=== PATIENT | female | born 1990 | race Caucasian/White ===

== ENCOUNTER 2016-08-14 18:26 | Inpatient (IN) ==
--- NOTE | 2016-08-14 18:38 | Emergency Department Note ---
Disposition Clinical Impression: Intentional overdose of drug in tablet form, Depression, Suicidal ideation Disposition: Admitted As Inpatient Condition: Serious General Adult HPI - General Chief complaint: ED Overdose Stated complaint: overdose Time Seen by Provider: 08/14/16 18:28 Source: EMS Limitations: altered mental status - History of Present Illness Pain Scale: 0 - Related Data Home Medications Medication Instructions Recorded Confirmed No Known Home Drugs 08/14/16 08/14/16 Allergies Allergy/AdvReac Type Severity Reaction Status Date / Time No Known Allergies Allergy Verified 11/24/15 22:27 Past Medical History - Past Medical History Medical history: Reports: no medical history Surgical history: Reports: Psychiatric history: Reports: anxiety, depression, prior suicide attempt, previous psychiatric hospitalization 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 - Social History Smoking Status: Current every day smoker Smokeless Tobacco Status: No Alcohol use: Reports: none Drug use: Reports: none Physical Exam - General Limitations: altered mental status General appearance: other Course Vital Signs Temperature 97.5 F L 08/14/16 18:28 Pulse Rate 63 08/14/16 18:28 Respiratory Rate 14 08/14/16 18:28 Blood Pressure 134/91 08/14/16 18:28 O2 Sat by Pulse Oximetry 98 08/14/16 18:28 Temperature 98.3 F 08/15/16 08:58 Pulse Rate 99 08/15/16 08:58 Respiratory Rate 14 08/15/16 08:58 Blood Pressure 141/87 08/15/16 08:58 O2 Sat by Pulse Oximetry 99 08/14/16 18:42 Oxygen Delivery Oxygen Delivery Room Air Medical Decision Making - Lab Data Result diagrams: 08/14/16 18:49 08/14/16 18:49 Lab Results 08/14/16 08/14/16 08/14/16 Range/Units 18:30 18:30 18:30 WBC (4.3-11.1) K/mcL RBC (3.82-4.97) M/mcL Hgb (11.5-15.4) g/dL Hct (35.3-44.9) % MCV (83.0-100.0) fL MCH (28.0-33.3) pg MCHC (31.6-35.5) g/dL RDW (11.5-14.5) % Plt Count (140-400) K/mcL MPV (9.4-12.4) fL Immature Gran % (0-4) % Seg Neutrophils % % Lymphocytes % % Monocytes % % Eosinophils % % Basophils % % Neutrophils # (1.6-8.9) K/mcL Lymphocytes # (0.6-4.6) K/mcL Monocytes # (0.0-1.3) K/mcL Eosinophils # (0.0-0.6) K/mcL Basophils # (0.0-0.2) K/mcL Sodium (136-145) mEq/L Potassium (3.5-4.5) mEq/L Chloride (98-109) mEq/L Carbon Dioxide (19-29) mEq/L BUN (7-20) mg/dL Creatinine (0.57-1.11) mg/dL Est GFR ( Amer) (> 60) Est GFR (Non-Af Amer) (> 60) BUN/Creatinine Ratio (6-26) Glucose (70-99) mg/dL POC Glucose (58-89) Calculated Osmolality (280-300) Calcium (8.6-10.8) mg/dL Total Bilirubin (0.2-1.2) mg/dL Direct Bilirubin (0.0-0.5) mg/dL Indirect Bilirubin (0.0-1.2) mg/dL AST (5-34) Units/L ALT (0-55) Units/L Alkaline Phosphatase (38-126) Units/L Serum Total Protein (6.0-8.3) g/dL Albumin (3.5-5.0) g/dL Globulin (2.4-3.5) g/dL Albumin/Globulin Ratio (1.1-2.2) Urine Color Yellow (Yellow) Urine Clarity Cloudy A (Clear) Urine pH 5.5 (5.0-8.0) pH Units Ur Specific [place] [address] 1.025 (1.010-1.025) Urine Protein Negative (Neg-Trace) mg/dL Urine Glucose (UA) Normal (Normal) mg/dL Urine Ketones Negative (Negative) mg/dL Urine Blood Negative (Negative) Urine Nitrite Negative (Negative) Urine Bilirubin Negative (Negative) Urine Urobilinogen Normal (Normal) mg/dL Ur Leukocyte Esterase Negative (Negative) Urine Microscopic RBC 0-3 (0-3) per hpf Urine Microscopic WBC 5-15 H (0-3) per hpf Ur Squamous Epith Cells Many H (None-Few) per lpf Urine Bacteria Few (None-Few) per hpf Hyaline Casts None Seen (None-Few) per lpf Urine Test Negative (Negative) Salicylates (15-30) mg/dL Urine Opiates Screen Negative (Cjfmso=961) ng/mL Acetaminophen (10-30) mcg/mL Ur Barbiturates Screen Negative (Xvzkhp=039) ng/mL Ur Phencyclidine Scrn Negative (Cutoff=25) ng/mL Ur Amphetamines Screen Negative (Funxis=6485) ng/mL U Benzodiazepines Scrn Negative (Ivblqw=319) ng/mL Urine Cocaine Screen Negative (Cutoff= 300) ng/mL U Marijuana (THC) Screen Negative (Cutoff = 50) ng/mL Ethyl Alcohol (0-10) mg/dL 08/14/16 08/14/16 08/14/16 Range/Units 18:45 18:49 18:49 WBC 11.5 H (4.3-11.1) K/mcL RBC 5.30 H (3.82-4.97) M/mcL Hgb 14.6 (11.5-15.4) g/dL Hct 43.2 (35.3-44.9) % MCV 81.5 L (83.0-100.0) fL MCH 27.5 L (28.0-33.3) pg MCHC 33.8 (31.6-35.5) g/dL RDW 13.2 (11.5-14.5) % Plt Count 296 (140-400) K/mcL MPV 10.1 (9.4-12.4) fL Immature Gran % 0.3 (0-4) % Seg Neutrophils % 84.0 % Lymphocytes % 11.9 % Monocytes % 3.4 % Eosinophils % 0.1 % Basophils % 0.3 % Neutrophils # 9.7 H (1.6-8.9) K/mcL Lymphocytes # 1.4 (0.6-4.6) K/mcL Monocytes # 0.4 (0.0-1.3) K/mcL Eosinophils # 0.0 (0.0-0.6) K/mcL Basophils # 0.0 (0.0-0.2) K/mcL Sodium 140 (136-145) mEq/L Potassium 4.0 (3.5-4.5) mEq/L Chloride 108 (98-109) mEq/L Carbon Dioxide 22 (19-29) mEq/L BUN 13 (7-20) mg/dL Creatinine 0.81 (0.57-1.11) mg/dL Est GFR ( Amer) > 60 (> 60) Est GFR (Non-Af Amer) > 60 (> 60) BUN/Creatinine Ratio 16 (6-26) Glucose 101 H (70-99) mg/dL POC Glucose 92 H (58-89) Calculated Osmolality 290 (280-300) Calcium 9.6 (8.6-10.8) mg/dL Total Bilirubin 0.4 (0.2-1.2) mg/dL Direct Bilirubin 0.2 (0.0-0.5) mg/dL Indirect Bilirubin 0.2 (0.0-1.2) mg/dL AST 16 (5-34) Units/L ALT 20 (0-55) Units/L Alkaline Phosphatase 75 (38-126) Units/L Serum Total Protein 7.5 (6.0-8.3) g/dL Albumin 4.0 (3.5-5.0) g/dL Globulin 3.5 (2.4-3.5) g/dL Albumin/Globulin Ratio 1.1 (1.1-2.2) Urine Color (Yellow) Urine Clarity (Clear) Urine pH (5.0-8.0) pH Units Ur Specific [place] [address] (1.010-1.025) Urine Protein (Neg-Trace) mg/dL Urine Glucose (UA) (Normal) mg/dL Urine Ketones (Negative) mg/dL Urine Blood (Negative) Urine Nitrite (Negative) Urine Bilirubin (Negative) Urine Urobilinogen (Normal) mg/dL Ur Leukocyte Esterase (Negative) Urine Microscopic RBC (0-3) per hpf Urine Microscopic WBC (0-3) per hpf Ur Squamous Epith Cells (None-Few) per lpf Urine Bacteria (None-Few) per hpf Hyaline Casts (None-Few) per lpf Urine Test (Negative) Salicylates < 5.0 L (15-30) mg/dL Urine Opiates Screen (Zrafqs=879) ng/mL Acetaminophen < 1.0 L (10-30) mcg/mL Ur Barbiturates Screen (Apoepj=310) ng/mL Ur Phencyclidine Scrn (Cutoff=25) ng/mL Ur Amphetamines Screen (Jbvaut=0431) ng/mL U Benzodiazepines Scrn (Pvnnlf=605) ng/mL Urine Cocaine Screen (Cutoff= 300) ng/mL U Marijuana (THC) Screen (Cutoff = 50) ng/mL Ethyl Alcohol < 10 (0-10) mg/dL Attestation Statement - Attestation Attestation: I examined this patient and my medical decision-making was reviewed with the RN CLINICAL DOCUMENTATION/PA/Advanced Practice Nurse/Resident Physician. I agree with the documented findings, disposition and treatment plan as described except to the extent set forth below. [id number] time provided Patient intentionally ingested her grandmothers baclofen approximately 12 hours ago. She states she was depressed and suicidal. No other co-intoxicants ingested. She denies physical complaints other than feeling depressed. She is alert and lucid. She does answer most questions appropriately. Protecting her airway appropriately Medically cleared. 1A called at 19:12 1A present to evaluate patient at 20:08
[2016-08-14 18:43] LABS: Bilirubin,Urine Negative (Negative); Blood,Urine Negative (Negative); Clarity,Urine Cloudy (Clear); Color,Urine Yellow (Yellow); Glucose,Urine (UA) Normal (Normal); Ketones,Urine Negative (Negative); Leukocyte Esterase,Urine Negative (Negative); Nitrite,Urine Negative (Negative); PH,Urine 5.5 pH Units (5.0-8.0); Protein,Urine Negative (Neg-Trace); Specific Gravity,Urine 1.025 (1.010-1.025); Urobilinogen,Urine Normal (Normal)
[2016-08-14 18:45] LABS: Bacteria,Urine Few per hpf (None-Few); Hyaline Casts,Urine None Seen per lpf (None-Few); Squamous Epithelial Cell,Urine Many per lpf (None-Few)
[2016-08-14 18:46] LABS: RBC,Urine 0-3 per hpf (0-3)
[2016-08-14 18:50] LABS: Amphetamine Screen,Urine Negative ng/mL (Cutoff=1000); Barbiturate Screen,Urine Negative ng/mL (Cutoff=200); Benzodiazepines Screen,Urine Negative ng/mL (Cutoff=200); Cannabinoid Screen,Urine Negative ng/mL (Cutoff = 50); Cocaine Screen,Urine Negative ng/mL (Cutoff= 300); Opiate Screen,Urine Negative ng/mL (Cutoff=300); Phencyclidine Screen,Urine Negative ng/mL (Cutoff=25)
[2016-08-14 18:55] LABS: Basophils % 0.3 %; Eosinophils % 0.1 %; Hematocrit 43.2 % (35.3-44.9); Hemoglobin 14.6 g/dL (11.5-15.4); Immature Granulocytes % 0.3 % (0-4); Lymphocytes # 1.4 K/mcL (0.6-4.6); Lymphocytes % 11.9 %; Mean Corpuscular HGB Conc 33.8 g/dL (31.6-35.5); Mean Corpuscular Hemoglobin 27.5 pg (28.0-33.3); Mean Corpuscular Volume 81.5 fL (83.0-100.0); Mean Platelet Volume 10.1 fL (9.4-12.4); Monocytes # 0.4 K/mcL (0.0-1.3); Monocytes % 3.4 %; Neutrophils # 9.7 K/mcL (1.6-8.9); Platelet Count 296 K/mcL (140-400); Red Cell Distribution Width 13.2 % (11.5-14.5)
[2016-08-14 19:09] LABS: Alanine Aminotransferase 20 Units/L (0-55); Albumin/Globulin Ratio 1.1 (1.1-2.2); Alkaline Phosphatase 75 Units/L (38-126); Aspartate Amino Transferase 16 Units/L (5-34); BUN/Creatinine Ratio 16 (6-26); Bilirubin,Direct 0.2 mg/dL (0.0-0.5); Bilirubin,Indirect 0.2 mg/dL (0.0-1.2); Bilirubin,Total 0.4 mg/dL (0.2-1.2); Blood Urea Nitrogen 13 mg/dL (7-20); Calcium 9.6 mg/dL (8.6-10.8); Carbon Dioxide 22 mEq/L (19-29); Chloride 108 mEq/L (98-109); Globulin 3.5 g/dL (2.4-3.5); Glucose 101 mg/dL (70-99); Osmolality,Calculated 290 (280-300); Sodium 140 mEq/L (136-145); Total Protein 7.5 g/dL (6.0-8.3); eGFR For African Americans > 60 (> 60); eGFR For Non-African Americans > 60 (> 60)
[2016-08-14 19:10] LABS: Acetaminophen < 1.0 mcg/mL (10-30); Ethanol < 10 mg/dL (0-10); Salicylate < 5.0 mg/dL (15-30)
--- NOTE | 2016-08-14 21:43 | Emergency Department Note ---
Overdose - Lab Data Lab results reviewed: Yes I reviewed the patient's lab results. Lab results narrative: Short CBC 08/14/16 Range/Units 18:49 WBC 11.5 H (4.3-11.1) K/mcL Hgb 14.6 (11.5-15.4) g/dL Hct 43.2 (35.3-44.9) % Plt Count 296 (140-400) K/mcL Neutrophils # 9.7 H (1.6-8.9) K/mcL BMP 08/14/16 Range/Units 18:49 Sodium 140 (136-145) mEq/L Potassium 4.0 (3.5-4.5) mEq/L Chloride 108 (98-109) mEq/L Carbon Dioxide 22 (19-29) mEq/L BUN 13 (7-20) mg/dL Creatinine 0.81 (0.57-1.11) mg/dL Glucose 101 H (70-99) mg/dL Calcium 9.6 (8.6-10.8) mg/dL Liver Function 08/14/16 Range/Units 18:49 Total Bilirubin 0.4 (0.2-1.2) mg/dL Direct Bilirubin 0.2 (0.0-0.5) mg/dL AST 16 (5-34) Units/L ALT 20 (0-55) Units/L Alkaline Phosphatase 75 (38-126) Units/L Albumin 4.0 (3.5-5.0) g/dL Urine 08/14/16 Range/Units 18:30 Urine Color Yellow (Yellow) Urine Clarity Cloudy A (Clear) Urine pH 5.5 (5.0-8.0) pH Units Ur Specific [place] 1.025 (1.010-1.025) Urine Protein Negative (Neg-Trace) mg/dL Urine Glucose (UA) Normal (Normal) mg/dL Result diagrams: 08/14/16 18:49 08/14/16 18:49 Lab Results 08/14/16 08/14/16 08/14/16 Range/Units 18:30 18:30 18:30 WBC (4.3-11.1) K/mcL RBC (3.82-4.97) M/mcL Hgb (11.5-15.4) g/dL Hct (35.3-44.9) % MCV (83.0-100.0) fL MCH (28.0-33.3) pg MCHC (31.6-35.5) g/dL RDW (11.5-14.5) % Plt Count (140-400) K/mcL MPV (9.4-12.4) fL Immature Gran % (0-4) % Seg Neutrophils % % Lymphocytes % % Monocytes % % Eosinophils % % Basophils % % Neutrophils # (1.6-8.9) K/mcL Lymphocytes # (0.6-4.6) K/mcL Monocytes # (0.0-1.3) K/mcL Eosinophils # (0.0-0.6) K/mcL Basophils # (0.0-0.2) K/mcL Sodium (136-145) mEq/L Potassium (3.5-4.5) mEq/L Chloride (98-109) mEq/L Carbon Dioxide (19-29) mEq/L BUN (7-20) mg/dL Creatinine (0.57-1.11) mg/dL Est GFR ( Amer) (> 60) Est GFR (Non-Af Amer) (> 60) BUN/Creatinine Ratio (6-26) Glucose (70-99) mg/dL POC Glucose (58-89) Calculated Osmolality (280-300) Calcium (8.6-10.8) mg/dL Total Bilirubin (0.2-1.2) mg/dL Direct Bilirubin (0.0-0.5) mg/dL Indirect Bilirubin (0.0-1.2) mg/dL AST (5-34) Units/L ALT (0-55) Units/L Alkaline Phosphatase (38-126) Units/L Serum Total Protein (6.0-8.3) g/dL Albumin (3.5-5.0) g/dL Globulin (2.4-3.5) g/dL Albumin/Globulin Ratio (1.1-2.2) Urine Color Yellow (Yellow) Urine Clarity Cloudy A (Clear) Urine pH 5.5 (5.0-8.0) pH Units Ur Specific [place] 1.025 (1.010-1.025) Urine Protein Negative (Neg-Trace) mg/dL Urine Glucose (UA) Normal (Normal) mg/dL Urine Ketones Negative (Negative) mg/dL Urine Blood Negative (Negative) Urine Nitrite Negative (Negative) Urine Bilirubin Negative (Negative) Urine Urobilinogen Normal (Normal) mg/dL Ur Leukocyte Esterase Negative (Negative) Urine Microscopic RBC 0-3 (0-3) per hpf Urine Microscopic WBC 5-15 H (0-3) per hpf Ur Squamous Epith Cells Many H (None-Few) per lpf Urine Bacteria Few (None-Few) per hpf Hyaline Casts None Seen (None-Few) per lpf Urine Test Negative (Negative) Salicylates (15-30) mg/dL Urine Opiates Screen Negative (Omtkxp=458) ng/mL Acetaminophen (10-30) mcg/mL Ur Barbiturates Screen Negative (Btocfz=157) ng/mL Ur Phencyclidine Scrn Negative (Cutoff=25) ng/mL Ur Amphetamines Screen Negative (Fkcxfw=1331) ng/mL U Benzodiazepines Scrn Negative (Eeyqpc=419) ng/mL Urine Cocaine Screen Negative (Cutoff= 300) ng/mL U Marijuana (THC) Screen Negative (Cutoff = 50) ng/mL Ethyl Alcohol (0-10) mg/dL 08/14/16 08/14/16 08/14/16 Range/Units 18:45 18:49 18:49 WBC 11.5 H (4.3-11.1) K/mcL RBC 5.30 H (3.82-4.97) M/mcL Hgb 14.6 (11.5-15.4) g/dL Hct 43.2 (35.3-44.9) % MCV 81.5 L (83.0-100.0) fL MCH 27.5 L (28.0-33.3) pg MCHC 33.8 (31.6-35.5) g/dL RDW 13.2 (11.5-14.5) % Plt Count 296 (140-400) K/mcL MPV 10.1 (9.4-12.4) fL Immature Gran % 0.3 (0-4) % Seg Neutrophils % 84.0 % Lymphocytes % 11.9 % Monocytes % 3.4 % Eosinophils % 0.1 % Basophils % 0.3 % Neutrophils # 9.7 H (1.6-8.9) K/mcL Lymphocytes # 1.4 (0.6-4.6) K/mcL Monocytes # 0.4 (0.0-1.3) K/mcL Eosinophils # 0.0 (0.0-0.6) K/mcL Basophils # 0.0 (0.0-0.2) K/mcL Sodium 140 (136-145) mEq/L Potassium 4.0 (3.5-4.5) mEq/L Chloride 108 (98-109) mEq/L Carbon Dioxide 22 (19-29) mEq/L BUN 13 (7-20) mg/dL Creatinine 0.81 (0.57-1.11) mg/dL Est GFR ( Amer) > 60 (> 60) Est GFR (Non-Af Amer) > 60 (> 60) BUN/Creatinine Ratio 16 (6-26) Glucose 101 H (70-99) mg/dL POC Glucose 92 H (58-89) Calculated Osmolality 290 (280-300) Calcium 9.6 (8.6-10.8) mg/dL Total Bilirubin 0.4 (0.2-1.2) mg/dL Direct Bilirubin 0.2 (0.0-0.5) mg/dL Indirect Bilirubin 0.2 (0.0-1.2) mg/dL AST 16 (5-34) Units/L ALT 20 (0-55) Units/L Alkaline Phosphatase 75 (38-126) Units/L Serum Total Protein 7.5 (6.0-8.3) g/dL Albumin 4.0 (3.5-5.0) g/dL Globulin 3.5 (2.4-3.5) g/dL Albumin/Globulin Ratio 1.1 (1.1-2.2) Urine Color (Yellow) Urine Clarity (Clear) Urine pH (5.0-8.0) pH Units Ur Specific [place] (1.010-1.025) Urine Protein (Neg-Trace) mg/dL Urine Glucose (UA) (Normal) mg/dL Urine Ketones (Negative) mg/dL Urine Blood (Negative) Urine Nitrite (Negative) Urine Bilirubin (Negative) Urine Urobilinogen (Normal) mg/dL Ur Leukocyte Esterase (Negative) Urine Microscopic RBC (0-3) per hpf Urine Microscopic WBC (0-3) per hpf Ur Squamous Epith Cells (None-Few) per lpf Urine Bacteria (None-Few) per hpf Hyaline Casts (None-Few) per lpf Urine Test (Negative) Salicylates < 5.0 L (15-30) mg/dL Urine Opiates Screen (Qsmcxe=363) ng/mL Acetaminophen < 1.0 L (10-30) mcg/mL Ur Barbiturates Screen (Rkzgss=998) ng/mL Ur Phencyclidine Scrn (Cutoff=25) ng/mL Ur Amphetamines Screen (Ymzzms=3390) ng/mL U Benzodiazepines Scrn (Vwyxei=467) ng/mL Urine Cocaine Screen (Cutoff= 300) ng/mL U Marijuana (THC) Screen (Cutoff = 50) ng/mL Ethyl Alcohol < 10 (0-10) mg/dL - EKG Data EKG attestation: Yes I reviewed and interpreted this EKG. EKG results narrative: EKG taken 08/14/2016 at 1844 hrs. shows a sinus rhythm at a rate of 71 bpm with no acute ST elevations or depressions anyways, no QRS widening or QT prolongation. No previous EKG for comparison Overdose HPI - General Chief Complaint: ED Overdose Stated Complaint: overdose Time Seen by Provider: 08/14/16 18:28 Source: EMS Limitations: altered mental status Nursing Notes Reviewed: Yes Vital Signs Reviewed: Yes - History of Present Illness HPI Narrative: Patient is 25-year-old female who presents very to overdose on baclofen approximately 12 hours ago. Patient was found lying down next to empty bottle of baclofen that was not hers. Patient was brought in via EMS alert and oriented maintaining her own airway. Patient states she took the baclofen intentionally for the intention of suicide. Patient states she took 6-7 flush the rest. Unknown dose, unknown amount actual ingestion Pt Subjective Complaint: intentional overdose Onset (ago): hour(s) How Overdose Was Discovered: called family/friend - Related Data Previous Rx's Medication Instructions Recorded Escitalopram [Lexapro] 10 mg PO DAILY #30 tablet 11/25/15 HydrOXYzine Pamoate 50 mg PO TID PRN #180 capsule 11/25/15 Allergies Allergy/AdvReac Type Severity Reaction Status Date / Time No Known Allergies Allergy Verified 11/24/15 22:27 All systems ED: reviewed and negative except as stated. Constitutional: Denies: fever, chills, weakness Eyes: Denies: vision change ENT ED: Denies: ear pain, throat pain, congestion, dysphagia Cardiovascular: Denies: chest pain, palpitations Respiratory: Denies: cough, dyspnea, wheezes Gastrointestinal: Denies: abdominal pain, nausea, vomiting, diarrhea Genitourinary: Denies: urgency, dysuria Musculoskeletal: Denies: back pain, neck pain Integumentary: Denies: rash, abrasion Neurological: Reports: confusion. Denies: headache, weakness Psychiatric: Reports: depression, suicidal thoughts. Denies: anxiety Endocrine: Denies: fatigue Past Medical History - Past Medical History Attestation: Yes The following information was validated with the patient. 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 Absent: nystagmus - ENT ENT exam: normal exam, normal oropharynx, mucous membranes moist - Neck Neck exam: Present: normal inspection, full ROM, trachea midline - Chest Chest inspection: Present: normal inspection, symmetric chest wall rise - Respiratory Respiratory exam: Present: normal lung sounds bilaterally. Absent: respiratory distress - Cardiovascular Cardiovascular exam: Present: regular rate, normal rhythm - Abdominal Exam Abdominal exam: Present: soft, Non-Tender, normal bowel sounds. Absent: distention, guarding, rebound, rigidity - Extremities Exam Extremities exam: Present: normal inspection, full ROM, tenderness, normal capillary refill. Absent: pedal edema - Back Exam Back exam: Present: normal inspection, full ROM. Absent: CVA tenderness (R), CVA tenderness (L) - Neurological Exam Neurological exam: Present: alert, CN II-XII intact, other (GCS of 15) - Psychiatric Psychiatric exam: Present: suicidal ideation Course - Reevaluation(s) Reevaluation #1: Patient concerning for suicide attempt secondary to baclofen overdose. Plan: Medical clearance for psych evaluation. Pre-psych evaluation labs ordered. Poison control was called and spoke to Merle who suggested observation but no treatment recommended, Dr. Rios called and discussed case with poison control. Time: 18:30 Reevaluation #2: Patient's lab work shows no remarkable abnormalities, patient's urine tox is negative for aspirin, acetaminophen, opioids, benzos, barbiturates, PCP, cocaine. Urine negative. Patient's medically cleared for 1A evaluation. Time: 20:30 Reevaluation #3: Patient accepted for inpatient psychiatric evaluation and treatment. Time: 22:28 - Consultations Consultation #1: poison control called back for information concerning patient's labs and EKG. No further recommendations at this time Time: 20:55 Consultation #2: Patient accepted for inpatient psychiatric evaluation and treatment 1A accepts Time: 22:29 Vital Signs Temperature 97.5 F L 08/14/16 18:28 Pulse Rate 63 08/14/16 18:28 Respiratory Rate 14 08/14/16 18:28 Blood Pressure 134/91 08/14/16 18:28 O2 Sat by Pulse Oximetry 98 08/14/16 18:28 Temperature 97.5 F L 08/14/16 18:28 Pulse Rate 73 08/14/16 18:42 Respiratory Rate 16 08/14/16 18:42 Blood Pressure 134/91 08/14/16 18:42 O2 Sat by Pulse Oximetry 99 08/14/16 18:42 Oxygen Delivery Oxygen Delivery Room Air Disposition Clinical Impression: Intentional overdose of drug in tablet form, Suicidal ideation Depression Qualifiers: Depression Type: unspecified Qualified Code(s): F32.9 - Major depressive disorder, single episode, unspecified Disposition: Admitted As Inpatient Condition: Serious Referrals: NO,PCP [Primary Care Provider] - Forms: ED Satisfaction Letter Time of Disposition: 22:27
[2016-08-14] MEDS ORDERED: hydrOXYzine pamoate 25 MG CAPSULE PO PRN (22:54)
[2016-08-14] MEDS ORDERED: Mag Hydrox/Al Hydrox/Simeth 30 ML UDC PO PRN (22:54)
[2016-08-14] MEDS ORDERED: Acetaminophen 325 MG TABLET PO PRN (22:54)
[2016-08-14] MEDS ORDERED: *HR* LORazepam 2 MG/ML VIAL IM PRN (22:54)
[2016-08-14] MEDS ORDERED: Haloperidol Lactate 5 MG/ML VIAL IM PRN (22:54)
[2016-08-14] MEDS ORDERED: MOM Conc 10 ML UD.LIQ PO PRN (22:54)
[2016-08-14] MEDS ORDERED: *HR* LORazepam 1 MG TABLET PO PRN (22:54)
--- NOTE | 2016-08-15 07:55 | Electrocardiograph Report ---
[place] [id number] Test Date: 2016-08-14 Pat Name: Teresa Ortega Department: 105 Room: 1A45 Gender: F Addiction Medicine Physician: HILARIO : 1990 Requested By: Mariano Yoder Order Number: [id number] Reading MD: Sharath Aguillon MD Measurements Intervals [place] Rate: 71 P: 59 RI: 163 QRS: 70 QRSD: 82 T: 38 QT: 396 QTc: 418 Interpretive Statements SINUS RHYTHM ARTIFACT PRESENT Electronically Signed On 08-15-2016 7:53:46 EDT by Sharath Aguillon MD
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
[2016-08-15] MEDS: OXcarbazepine 150 MG TABLET PO SCH (21:03)
[2016-08-16] MEDS: OXcarbazepine 150 MG TABLET PO SCH ×2 (09:53→20:55)
--- NOTE | 2016-08-16 20:10 | Psychiatry Progress Note ---
Date of Encounter: 08/16/16 Time of Encounter: 20:00 Subjective Interval history: Pt reports feeling calmer and not getting stressed out. She slept OK. Pt has not had any s/e to Trileptal.No rashes or pruritis. She had a headache but its from her sinus infection. Review of Systems Psychiatric: Reports: depression, anxiety, abnormal sleep pattern, anhedonia, memory loss, difficulty concentrating, panic attacks Objective: Exam Level of alertness: Alert Patient appearance: Appropriate, Well Groomed, Obese Behavior: cooperative, anxious Psychomotor activity: Normal Eye contact: Minimal Contact Mood description: Depressed, Anxious Affect description: congruent with mood Speech pattern: Normal rate Speech volume: Normal Thought process: Logical, Linear, Goal Oriented Thought content: Yes Intact Judgment: Limited Insight: Partial Results - Vital Signs Vital Signs: Temp Pulse Resp BP Pulse Ox 98.2 F 77 16 122/84 99 08/16/16 09:00 08/16/16 09:00 08/16/16 09:00 08/16/16 09:00 08/14/16 18:42 Assessment and Plan (1) Major depressive disorder, recurrent episode Current visit: No Status: Acute Risks, benefits, side effects, alternatives discussed w/pt: Yes (Start Trileptal for mood and anxiety.) Patient agreeable to treatment: Yes Qualifiers: Major depression episode severity: severe Psychotic features: without psychotic features Qualified Code(s): F33.2 - Major depressive disorder, recurrent severe without psychotic features Consult Discharge Plan - Plan Referrals: [facility] [place] [Outside] - 08/22/16 9:30 am (The above appointment is with Dr. Proctor. This appointment is to establish you with a primary care provider. Please arrive 15 minutes early for your new patient appointment, and bring the following items with you: insurance card (if you do not have insurance bring proof of income to apply for the sliding fee scale), photo ID, and any medication you take in the original bottles. If you are unable to bring these items, your appointment will be rescheduled. If you are unable to keep this appointment, 24 hour business notice of cancellation is expected. If you miss your new patient appointment, you cannot be re-scheduled in this practice for 3 months. ) [facility] [Outside] (Unable to get appointment due to holiday. Will call 08/18/2016.) [facility] [Outside] (Unable to get appointment due to holiday. Will call 08/18/2016.)
[2016-08-17] MEDS: OXcarbazepine 150 MG TABLET PO SCH ×2 (08:10→22:42)
--- NOTE | 2016-08-17 13:15 | Psychiatry Progress Note ---
Date of Encounter: 08/17/16 Time of Encounter: 13:10 Subjective Interval history: Pt reports that she slept better. She thinks the medicine is helping as she is feeling calmer and not as stressed out. Denies s/e to meds. Review of Systems Psychiatric: Reports: depression, anxiety, abnormal sleep pattern, anhedonia, memory loss, difficulty concentrating, panic attacks Objective: Exam Level of alertness: Alert Patient appearance: Appropriate, Well Groomed, Obese Behavior: cooperative, anxious Psychomotor activity: Normal Eye contact: Minimal Contact Mood description: Depressed, Anxious Affect description: congruent with mood Speech pattern: Normal rate Speech volume: Normal Thought process: Logical, Linear, Goal Oriented Thought content: Yes Intact Judgment: Limited Insight: Partial Results - Vital Signs Vital Signs: Temp Pulse Resp BP Pulse Ox 97.7 F 93 16 133/80 99 08/17/16 07:57 08/17/16 07:57 08/17/16 07:57 08/17/16 07:57 08/14/16 18:42 Assessment and Plan (1) Major depressive disorder, recurrent episode Current visit: No Status: Acute Risks, benefits, side effects, alternatives discussed w/pt: Yes (Start Trileptal for mood and anxiety.) Patient agreeable to treatment: Yes Qualifiers: Major depression episode severity: severe Psychotic features: without psychotic features Qualified Code(s): F33.2 - Major depressive disorder, recurrent severe without psychotic features Consult Discharge Plan - Plan Referrals: [facility] [place] [Outside] - 08/22/16 9:30 am (The above appointment is with Dr. Proctor. This appointment is to establish you with a primary care provider. Please arrive 15 minutes early for your new patient appointment, and bring the following items with you: insurance card (if you do not have insurance bring proof of income to apply for the sliding fee scale), photo ID, and any medication you take in the original bottles. If you are unable to bring these items, your appointment will be rescheduled. If you are unable to keep this appointment, 24 hour business notice of cancellation is expected. If you miss your new patient appointment, you cannot be re-scheduled in this practice for 3 months. ) [facility] [place] [facility] [Outside] (Unable to get appointment due to holiday. Will call 08/18/2016.) [facility] [place] [facility] [Outside] (Unable to get appointment due to holiday. Will call 08/18/2016.)
[2016-08-18] MEDS: OXcarbazepine 150 MG TABLET PO SCH ×2 (09:17→20:48)
--- NOTE | 2016-08-18 15:29 | Psychiatry Progress Note ---
Date of Encounter: 08/18/16 Time of Encounter: 15:00 Subjective Interval history: Patient seen for follow-up. labs medications and notes were reviewed. Nursing staff. She is improving, less anxious, participating in groups and interacting with other patients. She started the medication and believes it is helping, denies any panic attacks and look forward to discharge and follow-up. Denies any suicidal ideation. Review of Systems Psychiatric: Reports: depression, anxiety, abnormal sleep pattern, anhedonia, memory loss, difficulty concentrating, panic attacks Objective: Exam Patient orientation: Yes Person, Yes Time, Yes Place Level of alertness: Alert Patient appearance: Appropriate, Well Groomed, Obese Behavior: cooperative, anxious Psychomotor activity: Normal Eye contact: Maintains Eye Contact Mood description: Anxious Affect description: congruent with mood, anxious Speech pattern: Normal rate Speech volume: Normal Thought process: Logical, Linear, Goal Oriented Thought content: Yes Intact Perceptual disturbances: No Auditory hallucinations, No Visual hallucinations Judgment: Limited Insight: Partial Results - Vital Signs Vital Signs: Temp Pulse Resp BP Pulse Ox 98.9 F 124 16 134/95 99 08/18/16 09:00 08/18/16 09:00 08/18/16 09:00 08/18/16 09:00 08/14/16 18:42 Assessment and Plan (1) Major depressive disorder, recurrent episode Current visit: No Status: Acute Plan: Continue hospitalization, Close observation, Suicide Precautions per unit protocol, Encourage participation in unit milieu, Group Therapy, Monitor sleep, Monitor appetite Risks, benefits, side effects, alternatives discussed w/pt: Yes (Start Trileptal for mood and anxiety.) Patient agreeable to treatment: Yes Qualifiers: Major depression episode severity: severe Psychotic features: without psychotic features Qualified Code(s): F33.2 - Major depressive disorder, recurrent severe without psychotic features Consult Discharge Plan - Plan Referrals: [facility] [place] [Outside] - 08/22/16 9:30 am (The above appointment is with Dr. Proctor. This appointment is to establish you with a primary care provider. Please arrive 15 minutes early for your new patient appointment, and bring the following items with you: insurance card (if you do not have insurance bring proof of income to apply for the sliding fee scale), photo ID, and any medication you take in the original bottles. If you are unable to bring these items, your appointment will be rescheduled. If you are unable to keep this appointment, 24 hour business notice of cancellation is expected. If you miss your new patient appointment, you cannot be re-scheduled in this practice for 3 months. ) [facility] [place] [facility] [Outside] (Unable to get appointment due to holiday. Will call 08/18/2016.) [facility] [place] [facility] [Outside] - 09/12/16 1:00 pm (The above appointment is with Treasure Gonzales, psychiatric prescriber, Please arrive 15 minutes early for this appointment to complete paperwork. You may contact the office regularly to check for cancellations that may allow you to be seen sooner by the psychiatric prescriber. )
[2016-08-19] MEDS: OXcarbazepine 150 MG TABLET PO SCH (08:53)
[2016-08-19 09:49] VITALS: BP 124/90
--- NOTE | 2016-08-19 12:14 | Discharge Summary ---
Date of Encounter: 08/19/16 Time of Encounter: 12:00 Diagnosis - Discharge Diagnosis (1) Major depressive disorder, recurrent episode Status: Acute Qualifiers: Major depression episode severity: severe Psychotic features: without psychotic features Qualified Code(s): F33.2 - Major depressive disorder, recurrent severe without psychotic features Medications - Discharge Medications Prescriptions: Doxepin [Sinequan] 25 mg PO HS #14 capsule Oxcarbazepine [Trileptal] 450 mg PO BID 30 Days Doxepin [Sinequan] 25 mg PO HS #14 capsule 08/19/16 [Rx] Oxcarbazepine [Trileptal] 450 mg PO BID 30 Days 08/19/16 [Rx] Allergies No Known Allergies Allergy (Verified 11/24/15 22:27) Provider Date of admission: 08/14/16 22:54 Primary care physician: PCP NO Discharging clinician: Waldemar Stokes Assessment and Plan - Patient/Caregiver Discharge Instructions Activity: resume usual activities as tolerated Diet: regular diet - Follow up Plan [facility]: [facility] [place] [Outside] - 08/22/16 9:30 am (The above appointment is with Dr. Proctor. This appointment is to establish you with a primary care provider. Please arrive 15 minutes early for your new patient appointment, and bring the following items with you: insurance card (if you do not have insurance bring proof of income to apply for the sliding fee scale), photo ID, and any medication you take in the original bottles. If you are unable to bring these items, your appointment will be rescheduled. If you are unable to keep this appointment, 24 hour business notice of cancellation is expected. If you miss your new patient appointment, you cannot be re-scheduled in this practice for 3 months. ) [facility] [place] [facility] [Outside] - 08/20/16 11:00 am (The above appointment is with Korin Solis for counseling.) [facility] [place] [facility] [Outside] - 09/12/16 1:00 pm (The above appointment is with Treasure Gonzales, psychiatric prescriber, Please arrive 15 minutes early for this appointment to complete paperwork. You may contact the office regularly to check for cancellations that may allow you to be seen sooner by the psychiatric prescriber. ) Functional capacity at discharge: independent ambulation Overall status at discharge: Stable Disposition: Home, Self-Care Hospital Course Hospital course: Ms. Ortega is a 25 year old female admitted for evaluation and treatment of depression and suicidal attempt by overdosing on baclofen. For details of the admission please see H&P On the units patient was evaluated and started on Trileptal and doxepin for sleep. Patient responded well to medications, she participated in activities and groups, she reported improved sleep and energy. She denies suicidal ideation. And her discharge plans were completed by social sciences instructor for outpatient follow-up. On discharge patient was medically stable, nonsuicidal, future oriented. - Time Spent with Patient Total time spent providing and/or coordinating discharge services: Greater than 30 minutes Quality - Multiple Antipsychotics Patient discharged on 2 or more antipsychotic medications: No Procedures - Procedures Procedures: Medication Management, Crisis Stabilization, Supportive Therapy, Group Therapy, Psychoeducational Therapy Mental Status Exam - Mental Status Exam Patient orientation: Yes Person, Yes Time, Yes Place Level of alertness: Alert Patient appearance: Appropriate, Well Groomed, Obese Behavior: calm, cooperative Psychomotor activity: Normal Eye contact: Maintains Eye Contact Mood description: Euthymic/stable Affect description: congruent with mood, full range Speech pattern: Normal rate, Normal rhythm, Normal tone Speech Volume: Normal Thought process: Linear, Goal Oriented Thought Content: No Suicidal ideation, No Homicidal ideation, No Overt delusions Perceptual Disturbances: No Auditory hallucinations, No Visual hallucinations Judgment: Limited Insight: Partial
== END 2016-08-19 13:25 | disposition home or self-care (01) | DRG 918 ==
LOC: 1ANU 18:26 → EMEROO 18:26 → 1ANU 22:47 → SUATTDRO 22:54
PROVIDERS: ADMIT Psychiatry & Neurology Psychiatry; ATTEND Psychiatry & Neurology Psychiatry